=== PATIENT | male | born 1940 | race Caucasian/White ===

== ENCOUNTER → 2016-11-06 | Day surgery (SDC) | payer OTHER, BC ==
[2016-10-29 08:16] VITALS: Ht 172.7 cm; Wt 75.0 kg
[~2016-11-06] VITALS: Ht 172.7 cm; Wt 75.0 kg
[~2016-11-06] MED LIST: ALBU1AER9 INH; ALL100 PO; ASPEC81 PO; FINA5TAB PO; FLUV1CAP11 PO; FOSI40TA2 PO; LIDOCAINE HCL 2% 2 ML VIAL (20MG/ML) ONE; PANT40TA PO; POLY335025 PO; PRAV20TA PO; PROPOFOL IV EMULSION 10 MG/ML 20 ML VIAL IV ONE; SODIUM CHLORIDE 0.9% 500ML 500 ML IV ONE
[2016-11-06 11:02] VITALS: TEMP 36.8
--- NOTE | 2016-11-06 11:15 | Endo History and Physical ---
History & Physical Date of Service: Nov 06, 2016. Chief Complaint: chest discomfort, regurgitation Referring Physician: Tania Clark History of Present Illness 76 yo presenting for evaluation of regurgitation without alarm symptoms. Past Medical History Reflux, High Cholesterol, Hypertension Past Surgical History Hx Cardiac Surgery: No Hx Abdominal Surgery: No Hx Post-Op Nausea and Vomiting: No Hx Cancer Surgery: No Hx Thoracic Surgery: No Hx Orthopedic: No Hx Urinary Tract Surgery: No Family History Polyp Social History Smoking Status: Never Smoker Hx Substance Use: No Hx Alcohol Use: No Allergies Coded Allergies: No Known Allergies (Unverified , 11/06/16) Current Medications Reported Home Medications Medications Dose Route/Sig Max Daily Dose Days Date Category Fluvoxamine Maleat Er (Fluvoxamine Maleate) 150 Mg Cap 150 Mg PO HS 10/29/16 Reported Miralax (Polyethylene Glycol 3350) 1 Pow Pow 1 Dose PO DAILY PRN 06/02/14 Reported Pravachol (Pravastatin Sodium) 20 Mg Tab 20 Mg PO QAM 06/02/14 Reported Ecotrin Or Generic * (Aspirin) 81 Mg Ectab 162 Mg PO QAM 06/16/10 Reported Protonix (Pantoprazole Sodium) 40 Mg Tab 40 Mg PO QAM 12/30/09 Reported Proair Hfa (Albuterol) Aers 2 Puffs INH Q4HR PRN 12/27/09 Reported Monopril (Fosinopril Sodium) 40 Mg Tab 40 Mg PO QAM 12/27/09 Reported Proscar (Finasteride) 5 Mg Tab 5 Mg PO QAM 12/27/09 Reported Zyloprim * (Allopurinol) 100 Mg Tab 100 Mg PO QAM 12/27/09 Reported Vital Signs Weight (Kilograms): 75 Height (Feet): 5 Height (Inches): 8 Date Time Temp Pulse Resp B/P (MAP) Pulse Ox O2 Delivery O2 Flow Rate FiO2 11/06/16 11:02 36.8 56 20 175/81 (112) 95 Room Air Physical Exam General Appearance: WD/WN, no apparent distress Respiratory/Chest: Respiratory effort: no dyspnea Auscultation: breath sounds normal, CTA except as noted, no wheezing Cardiovascular: Apical Impulse: not displaced Heart Auscultation: RRR, normal S1, normal S2 Abdomen: Bowel Sounds: normal Inspection & Palpation: soft, non-distended Assessment and Plan 76 yo presenting for evaluation with EGD for regurgitation
--- NOTE | 2016-11-06 11:37 | Discharge Instructions ---
Endoscopy Patient Instructions Date / Procedure(s) Performed Nov 06, 2016. EGD Allergy Information Coded Allergies: No Known Allergies (Unverified , 11/06/16) Discharge Date / Findings Nov 06, 2016. Small hiatal hernia Otherwise unremarkable examination Medication Instructions Stopped Medication(s): 162mg Aspirin taken on 11/05/16 Provider Instructions Activity Restrictions - No exercising or heavy lifting for 24 hours. - Do not drink alcohol the day of the procedure. - Do not drive a car or operate machinery until the day after the procedure. - Do not make any important decisions or sign important papers in 24 hours after the procedure. Following Day: - Return to full activity which may include returning to work/school. Diet Start your diet with liquids and light foods (jello, soup, juice, toast). Then eat your usual diet if not nauseated. Treatment For Common After Affects For mild abdominal pain, bloating, or excessive gas: - Rest - Eat lightly - Lie on right side Follow-Up Information Follow-up with Tania Clark as scheduled Anesthesia Information What You Should Know You have had a procedure that required some medicine to reduce anxiety and discomfort. This treatment is called moderate sedation. After receiving the treatment, you may be sleepy, but you will be able to breathe on your own. The effects of the treatment may last for several hours. Follow these instructions along with Activity/Diet recommendations noted above: * Do NOT do anything where dizziness or clumsiness would be dangerous. * Rest quietly at home today, then you can be up and about tomorrow. * Have a responsible person stay with you the rest of today. * You may have had an I.V. today. If so, you may take the dressing off later today. Recommendations Call your doctor if: * Trouble breathing * Continuous vomiting for more than 24 hours * Temperature above 101 degrees * Severe abdominal pain or bloating * Pain not relieved by pain medicine ordered * There is increased drainage or redness from any incision * A large amount of rectal bleeding greater than 2-3 tablespoons. (If you had a polyp/s removed or have hemorrhoids, a small amount of blood - from the rectum is to be expected.) * You have any unanswered questions or concerns. IN THE EVENT OF A SERIOUS EMERGENCY, GO TO THE NEAREST EMERGENCY ROOM Your discharge instructions were prepared by provider See Evans. Patient Instructions Signature Page Kaushik Miller Patient (or Guardian) Signature/Date: I have read and understand the instructions given to me by my caregivers. Caregiver/RN/Doctor Signature/Date: The above-named patient and/or guardian has received patient instructions on this date. + Original Patient Signature Page (only) stays with chart. Please make copy for patient.
--- NOTE | 2016-11-06 11:40 | GI REPORT ---
Procedure Date: 11/06/2016 11:06 AM Procedure: Upper GI endoscopy Indications: Regurgitation Medicines: General Anesthesia Complications: No immediate complications. Estimated blood loss: None. Estimated Blood Loss: Estimated blood loss: none. Procedure: Pre-Anesthesia Assessment: - Pre-Anesthesia Assessment: - Prior to the procedure, a History and Physical was performed, and patient medications, allergies and sensitivities were reviewed. The patient's tolerance of previous anesthesia was reviewed. Please see [employer] for complete details. - The risks and benefits of the procedure and the sedation options and risks were discussed with the patient. All questions were answered and informed consent was obtained. - Patient identification and proposed procedure were verified prior to the procedure by the physician and the nurse. The procedure was verified in the pre-procedure area in the procedure room. After obtaining informed consent, the endoscope was passed carefully and meticuously under direct vision and only advanced when the lumen was clearly identified, C02 insuflation was utilized throughout the entirity of the procedure. Throughout the procedure, the patient's blood pressure, pulse, and oxygen saturations were monitored continuously. After obtaining informed consent, the endoscope was passed under direct vision. Throughout the procedure, the patient's blood pressure, pulse, and oxygen saturations were monitored continuously. The scope was introduced through the mouth, and advanced to the second part of duodenum. The upper GI endoscopy was accomplished without difficulty. The patient tolerated the procedure well. Findings: A small hiatus hernia was present. The entire examined stomach was normal. The examined duodenum was normal. Impression: - Small hiatus hernia. - Normal stomach. - Normal examined duodenum. - No specimens collected. Recommendation: - Discharge patient to home (with escort). - Return to referring physician as previously scheduled. See Evans MD 11/06/2016 11:40:14 AM This report has been signed electronically. Note Initiated On: 11/06/2016 11:06 AM I attest to the content of the Intraoperative Record and orders documented therein, exceptions below
[2016-11-06 12:10] VITALS: BP 143/81; PULSE 52; O2SAT 95
--- NOTE | 2016-11-06 12:38 | Anesthesiology Progress Note ---
Anesthesia Post Op Note Date & Time Nov 06, 2016 at 12:37 Vital Signs Pain Intensity: 0 Vital Signs Past 12 Hours Date Time Temp Pulse Resp B/P (MAP) Pulse Ox O2 Delivery O2 Flow Rate FiO2 11/06/16 12:10 52 20 143/81 (101) 95 Room Air 11/06/16 12:00 50 20 127/74 (91) 97 Room Air 11/06/16 11:52 52 20 113/66 (82) 95 Room Air 11/06/16 11:47 55 20 109/64 (79) 96 Room Air 11/06/16 11:41 53 20 114/67 (83) 96 Room Air 11/06/16 11:02 36.8 56 20 175/81 (112) 95 Room Air Notes Mental Status: alert / awake / arousable, participated in evaluation Pt Amnestic to Procedure: Yes Nausea / Vomiting: adequately controlled Pain: adequately controlled Airway Patency, RR, SpO2: stable & adequate BP & HR: stable & adequate Hydration State: stable & adequate Anesthetic Complications: no major complications apparent
== END | disposition home or self-care (01) ==
LOC: C.GI 10:21
PROVIDERS: ATTEND Internal Medicine
DX: K21.9 Gastro-esophageal reflux disease without esophagitis (principal); K44.9 Diaphragmatic hernia without obstruction or gangrene; I10 Essential (primary) hypertension; E78.00 Pure hypercholesterolemia, unspecified; Z79.899 Other long term (current) drug therapy